=== PATIENT | male | born 1960 | race Caucasian/White ===

== ENCOUNTER → 2018-01-30 | Outpatient (CLI) | payer BC ==
[2018-01-31 13:39] LABS: Banana IgE Class CLASS 0; Beef IgE <0.35 kU/L (<0.35); Beef IgE Class CLASS 0; Chicken IgE Class CLASS 0; Chocolate IgE Class CLASS 0; Kiwi IgE <0.35 kU/L (<0.35); Pork IgE Class CLASS 0; Yeast Bakers/Brew IgE <0.35 kU/L (<0.35)
[2018-01-31 13:40] LABS: Avocado Class CLASS 0; Cow's Milk IgE Class CLASS 0; Egg White IgE <0.35 kU/L (<0.35); Latex IgE Class CLASS 0; Peanut IgE <0.35 kU/L (<0.35); Potato IgE <0.35 kU/L (<0.35); Potato IgE Class CLASS 0; Soybean IgE <0.35 kU/L (<0.35)
[2018-01-31 13:41] LABS: Coffee IgE <0.35 kU/L (<0.35); Coffee IgE Class CLASS 0; Tea IgE <0.35 kU/L (<0.35)
[2018-02-01 13:19] LABS: Hazelnut IgG 6.9 mcg/mL (< 2.0)
== END | disposition home or self-care (01) ==
LOC: LABWHC1 14:03
PROVIDERS: ATTEND Otolaryngology
DX: L50.0 Allergic urticaria (principal)
CPT/HCPCS: 36415; 86001; 86003

== ENCOUNTER 2019-06-03 16:42 | Emergency (ER) | payer BC ==
[2019-06-03] MEDS ORDERED: SODIUM CHLORIDE 0.9% 1,000 ML IV STA (16:44)
[2019-06-03] MEDS ORDERED: FAMOTIDINE 20 MG/2 ML VIAL IV STA (16:44)
[2019-06-03] MEDS ORDERED: ALBUTEROL NEBULIZED 2.5 MG/3 ML INHALATION STA (16:44)
[2019-06-03 16:54] VITALS: BP 161/121; RESP 18; TEMP 98.1
[2019-06-03 17:11] VITALS: PULSE 99
--- NOTE | 2019-06-03 17:51 | ED ---
Allergic Reaction HPI - General Chief complaint: Allergic Reaction Stated complaint: allergic reaction Time Seen by Provider: 06/03/19 16:44 Source: patient, EMS, RN notes reviewed, old records reviewed Mode of arrival: EMS Limitations: no limitations - History of Present Illness Initial Comments: This is a 51-year-old male the ER for evaluation presents today for evaluation Symptomatic symptoms of ALLERGIC reaction. Patient has no pain. No difficulty breathing. Unknown ALLERGIC contacts. States his symptoms happen to him about once a year. Patient was given EpiPen steroids and Benadryl at primary care. Patient resents today per EMS for further evaluation management MD Complaint: allergic reaction, facial swelling (Neck) -: hour(s) Exposure: unknown Symptoms: hoarseness Treatment Prior to Arrival: benadryl, epinephrine, steroids Previous Allergy History: none - Related Data Home Medications Medication Instructions Recorded Confirmed Famotidine [Pepcid] 20 mg PO DAILY 06/03/19 06/03/19 Fexofenadine HCl [Amy Allergy] 180 mg PO DAILY 06/03/19 06/03/19 Allergies Allergy/AdvReac Type Severity Reaction Status Date / Time amoxicillin Allergy Nausea & Verified 06/03/19 17:29 Vomiting & Diarrhea shrimp Allergy Unknown Verified 06/03/19 17:29 Review of Systems ROS Statement: Those systems with pertinent positive or pertinent negative responses have been documented in the HPI. ROS Other: All systems not noted in ROS Statement are negative. Past Medical History Past Medical History: No Reported History History of Any Multi-Drug Resistant Organisms: None Reported Additional Past Surgical History / Comment(s): wrist surgery Past Psychological History: No Psychological Hx Reported Smoking Status: Never smoker Past Alcohol Use History: Daily Past Drug Use History: None Reported General Exam - General Exam Comments Initial Comments: No stridor no wheezing Limitations: no limitations General appearance: alert, in no apparent distress Head exam: Present: atraumatic, normocephalic, normal inspection Eye exam: Present: normal appearance, PERRL, EOMI. Absent: scleral icterus, conjunctival injection, periorbital swelling ENT exam: Present: normal exam, mucous membranes moist Neck exam: Present: normal inspection. Absent: tenderness, meningismus, lymphadenopathy Respiratory exam: Present: normal lung sounds bilaterally. Absent: respiratory distress, wheezes, rales, rhonchi, stridor Cardiovascular Exam: Present: regular rate, normal rhythm, normal heart sounds. Absent: systolic murmur, diastolic murmur, rubs, gallop, clicks GI/Abdominal exam: Present: soft, normal bowel sounds. Absent: distended, tenderness, guarding, rebound, rigid Extremities exam: Present: normal inspection, full ROM, normal capillary refill. Absent: tenderness, pedal edema, joint swelling, calf tenderness Back exam: Present: normal inspection Neurological exam: Present: alert, oriented X3, CN II-XII intact Psychiatric exam: Present: normal affect, normal mood Skin exam: Present: warm, dry, intact, normal color. Absent: rash Course Vital Signs 06/03/19 06/03/19 06/03/19 16:44 16:54 16:59 Temperature 98.1 F Pulse Rate 103 H 109 H Respiratory 18 18 Rate Blood Pressure 161/121 O2 Sat by Pulse 97 Oximetry 06/03/19 17:10 Temperature Pulse Rate 99 Respiratory Rate Blood Pressure O2 Sat by Pulse Oximetry - Reevaluation(s) Reevaluation #1: 06/03/19 17:49 Medical record reviewed Reevaluation #2: 06/03/19 17:49 A she monitored with increased improvement in symptoms Medical Decision Making - Medical Decision Making 59 male the ER for evaluation of ALLERGIC reaction feels like his neck and swelling. No significant findings on exam no stridor no swelling of tongue or lips. Patient feeling better and can be discharged home - Radiology Data Radiology results: report reviewed (Chest x-ray and x-ray soft tissue neck negative for acute disease), image reviewed Disposition Clinical Impression: Allergic reaction Disposition: HOME SELF-CARE Condition: Good Instructions (If sedation given, give patient instructions): Anaphylaxis (ED) Is patient prescribed a controlled substance at d/c from ED?: No Referrals: Mao Robertson DO [Primary Care Provider] - 1-2 days
== END 2019-06-03 18:23 | disposition home or self-care (01) ==
LOC: EC 16:42
DX: T78.40XA Allergy, unspecified, initial encounter (principal); R22.0 Localized swelling, mass and lump, head; Z98.890 Other specified postprocedural states; Z79.899 Other long term (current) drug therapy; Z88.0 Allergy status to penicillin; Z91.013 Allergy to seafood
CPT/HCPCS: 94640; 96361; 96374; 99284

== ENCOUNTER 2019-07-14 14:50 | Emergency (ER) | payer BC ==
[2019-07-14 15:16] VITALS: RESP 18
[2019-07-14] MEDS ORDERED: FAMOTIDINE 20 MG/2 ML VIAL IV STA (15:47)
[2019-07-14] MEDS ORDERED: methylPREDNISolone SOD SUCCI 125 MG/2 ML VIAL IV STA (15:47)
[2019-07-14] MEDS ORDERED: diphenhydrAMINE 50 MG/ML 1 ML VIAL IVP STA (15:47)
--- NOTE | 2019-07-14 15:50 | ED ---
General Adult HPI - General Chief complaint: Allergic Reaction Stated complaint: SANTIAGO,feels like throat is closing Time Seen by Provider: 07/14/19 15:25 Source: patient, family, RN notes reviewed Mode of arrival: ambulatory Limitations: no limitations - History of Present Illness Initial comments: Patient is a pleasant 59-year-old male presenting to emergency Department with complaints of throat irritation. Patient states symptoms started this morning. Patient did take an oral prednisone, 50 mg less than 2 hours ago. Patient took his regular Amy as well. Patient does have history of chronic hives occurring over the past couple of years. Patient does see ALLERGY doctor at [facility] and they believe symptoms may be autoimmune. Patient did have one episode previously of throat swelling however that was much more severe than this. Patient states he does feel a bit short of breath because of swelling in the throat and feels like he is gagging. Patient does not feel like there is breathing problems inside of his lungs. - Related Data Home Medications Medication Instructions Recorded Confirmed Famotidine [Pepcid] 20 mg PO DAILY 06/03/19 06/03/19 Fexofenadine HCl [Amy Allergy] 180 mg PO DAILY 06/03/19 06/03/19 Previous Rx's Medication Instructions Recorded Famotidine [Pepcid] 20 mg PO BID #28 tablet 06/03/19 diphenhydrAMINE [Benadryl] 50 mg PO QID PRN #20 capsule 06/03/19 predniSONE 50 mg PO DAILY #5 tab 06/03/19 Allergies Allergy/AdvReac Type Severity Reaction Status Date / Time amoxicillin Allergy Nausea & Verified 06/03/19 17:29 Vomiting & Diarrhea shrimp Allergy Unknown Verified 06/03/19 17:29 Review of Systems ROS Statement: Those systems with pertinent positive or pertinent negative responses have been documented in the HPI. ROS Other: All systems not noted in ROS Statement are negative. Constitutional: Denies: fever Eyes: Denies: eye pain ENT: Denies: ear pain Respiratory: Reports: as per HPI Cardiovascular: Denies: chest pain Endocrine: Denies: fatigue Gastrointestinal: Denies: abdominal pain Genitourinary: Denies: dysuria Musculoskeletal: Denies: back pain Skin: Denies: rash Neurological: Denies: weakness Past Medical History Past Medical History: No Reported History History of Any Multi-Drug Resistant Organisms: None Reported Additional Past Surgical History / Comment(s): wrist surgery Past Psychological History: No Psychological Hx Reported Smoking Status: Never smoker Past Alcohol Use History: Daily Past Drug Use History: None Reported General Exam Limitations: no limitations General appearance: alert, in no apparent distress Head exam: Present: atraumatic Eye exam: Present: normal appearance, PERRL ENT exam: Present: other (Mild uvula edema) Neck exam: Present: normal inspection Respiratory exam: Present: normal lung sounds bilaterally. Absent: respiratory distress, wheezes Cardiovascular Exam: Present: regular rate, normal rhythm GI/Abdominal exam: Present: soft. Absent: tenderness Extremities exam: Present: normal inspection Neurological exam: Present: alert Psychiatric exam: Present: normal affect, normal mood Skin exam: Present: normal color. Absent: rash Course Vital Signs 07/14/19 15:15 Temperature 98.0 F Pulse Rate 100 Respiratory 18 Rate Blood Pressure 168/111 O2 Sat by Pulse 98 Oximetry Medical Decision Making - Medical Decision Making Patient reevaluated and feels significant better. Uvula exam has normalized. Patient updated on need for follow-up. Patient has prednisone at home and is advised to take this for the next 4 days. Disposition Clinical Impression: Allergic reaction Disposition: HOME SELF-CARE Condition: Stable Instructions (If sedation given, give patient instructions): Angioedema (ED) Additional Instructions: Please follow-up with primary care physician and your assembler lay ups this week. Return for throat swelling, difficulty breathing, swelling of the face or tongue, worsening symptoms or other concerns. Use your prednisone 50 mg prescription once daily for the next 4 days. Is patient prescribed a controlled substance at d/c from ED?: No Referrals: Mao Robertson DO [Primary Care Provider] - 1-2 days Time of Disposition: 16:44
[2019-07-14 17:05] VITALS: BP 118/87; PULSE 87; TEMP 97
== END 2019-07-14 17:04 | disposition home or self-care (01) ==
LOC: EC 14:50
DX: T78.40XA Allergy, unspecified, initial encounter (principal); L50.8 Other urticaria; Z88.0 Allergy status to penicillin; Z91.013 Allergy to seafood; Z79.899 Other long term (current) drug therapy
CPT/HCPCS: 99284; 96374; 96375 ×2; J1200; J2930

== ENCOUNTER → 2019-10-13 | Outpatient (CLI) | payer BC | END | disposition home or self-care (01) | LOC: LABWHC1 10:30 | PROVIDERS: ATTEND Internal Medicine Critical Care Medicine | DX: L50.9 Urticaria, unspecified (principal) | CPT/HCPCS: 36415; 82785; 85008 ==

== ENCOUNTER → 2020-12-17 | Outpatient (CLI) | payer BC ==
--- NOTE | 2020-12-17 13:04 | MR ---
EXAMINATION TYPE: MR shoulder LT wo con DATE OF EXAM: 12/17/2020 12:38 PM COMPARISON: NONE HISTORY: Left shoulder pain into bicep TECHNIQUE: Multiplanar multispin echo imaging of the left shoulder was performed. FINDINGS: Rotator cuff : There is partial tear of the supraspinatus tendon at the critical zone. There is super imposed chronic tendinopathy of the supraspinatus tendon. Undersurface partial tear infraspinatus ten don. Subscapularis tendon is intact. Bursa: No bursal effusion or thickening is seen. Musculature: There is no muscular tear, contusion, or atrophy. Acromioclavicular joint : Moderate AC joint arthropathy. Lateral downsloping of the acromion resultin g. Osseous structures : Cystic degenerative change humeral head bony glenoid. Long biceps tendon : The b iceps tendon is normally situated within the bicipital groove. No complete or partial biceps tendon t ear is present. Fluid is seen within the biceps tendon sheath. Intra-articular biceps tendon tenosyno vitis. Glenohumeral Joint fluid : Moderate joint effusion seen. Cartilage and Bone : No focal hyaline cartilage defects are noted. No Hill-Sachs, reverse Hill-Sachs, or bony Bankart lesions are seen. Labrum : Anterior superior and inferior labral tear is suggested. OTHER FINDINGS : none IMPRESSION: 1. There is partial tear of the supraspinatus tendon at the critical zone. There is superimposed folder taper operator yulissa tendinopathy of the supraspinatus tendon. Undersurface partial tear infraspinatus tendon. 2. Chronic glenoid tears noted.
== END | disposition home or self-care (01) ==
LOC: RADMRIMAIN 10:54
PROVIDERS: ATTEND Family Medicine
DX: M75.112 Incomplete rotator cuff tear or rupture of left shoulder, not specified as traumatic (principal); M67.814 Other specified disorders of tendon, left shoulder

== ENCOUNTER → 2021-02-15 | Outpatient (CLI) | payer BC ==
[2021-02-15 13:20] LABS: HCT 40.7 % (39.0-53.0); HGB 14.2 gm/dL (13.0-17.5); MCHC 34.8 g/dL (31.0-37.0); MCV 89.1 fL (80.0-100.0); Mean Platelet Volume 6.9; Platelet Count 258 k/uL (150-450); RBC 4.56 m/uL (4.30-5.90); RDW 12.5 % (11.5-15.5); WBC 5.9 k/uL (3.8-10.6)
[2021-02-15 13:21] LABS: Appearance,Urine Clear (Clear); Bilirubin,Urine Negative (Negative); Blood,Urine Negative (Negative); Color,Urine Yellow; Glucose,Urine (UA) Negative (Negative); Ketones,Urine Negative (Negative); Leukocyte Esterase,Urine Negative (Negative); Nitrite,Urine Negative (Negative); Protein,Urine Negative (Negative); Specific Gravity,Urine 1.011 (1.001-1.035); Urobilinogen,Urine <2.0 mg/dL (<2.0)
[2021-02-15 13:36] LABS: Albumin 4.3 g/dL (3.5-5.0); Calcium 9.3 mg/dL (8.4-10.2); Partial Thromboplastin Time 22.9 sec (22.0-30.0); Potassium 5.1 mmol/L (3.5-5.1); Prothrombin Time 10.4 sec (9.0-12.0); Total Bilirubin 0.5 mg/dL (0.2-1.3); Total Protein 6.7 g/dL (6.3-8.2)
== END | disposition home or self-care (01) ==
LOC: LABPAT 10:52
PROVIDERS: ATTEND Orthopaedic Surgery
DX: Z01.810 Encounter for preprocedural cardiovascular examination (principal); Z01.812 Encounter for preprocedural laboratory examination
CPT/HCPCS: 36415; 80053; 81003; 85027; 85610; 85730; 87070; 93005

== ENCOUNTER 2021-03-15 11:03 | Day surgery (SDC) | payer BC ==
[2021-03-10 15:06] VITALS: BMI 29.0
[~2021-03-15 11:03] MED LIST: ACETAMINOPHEN TAB 500 MG TAB PO PRN; DEXAMETHASONE SOD PHOSPHATE 4 MG/ML 1 ML VIAL IV ONE; GABAPENTIN 300 MG CAP PO PRN; HYDROmorphone 0.5 MG/0.5 ML SYRINGE IVP PRN; LACTATED RINGERS 1,000 ML IV SCH; MELOXICAM 7.5 MG TAB PO PRN; MIDAZOLAM 2 MG/2 ML VIAL IV PRN; ONDANSETRON 4 MG/2 ML VIAL IVP ONE; ROPIVACAINE/EPI/CLONIDINE/KET 50 ML SYRINGE MISCELLANE PRN; SCOPOLAMINE 1.5MG/72HR PATCH TRANSDERM ONE; TRANEXAMIC ACID 1,000 MG in SODIUM CHLORIDE 0.9% 100 ML IVPB PRN
[2021-03-15 12:48] LABS: Albumin 4.1 g/dL (3.5-5.0); Calcium 9.6 mg/dL (8.4-10.2); Potassium 4.7 mmol/L (3.5-5.1); Total Bilirubin 0.6 mg/dL (0.2-1.3); Total Protein 6.5 g/dL (6.3-8.2)
[2021-03-15] MEDS ORDERED: MIDAZOLAM 2 MG/2 ML VIAL IVP ONE (13:15)
--- NOTE | 2021-03-15 14:24 | P.ANPRN ---
Procedure Note - Anesthesia - Nerve Block Performed Left Interscalene Time Out Performed: Yes (13:15) Date of Procedure: 03/15/21 Procedure Start Time: :15 Procedure Stop Time: Location of Patient: PreOp Indication: Acute Post-Operative Pain, Requested by Surgeon (Dr Mao Denton) Sedation Type: Sedate with meaningful contact maintained Preparation: Sterile Prep Position: Supine Catheter: None Needle Types: Pajunk Needle Gauge: Other (see comment) (22g) Ultrasound used to visualize needle placement: Yes Ultrasound used to observe medication spread: Yes Injectate: 0.5% Ropivacaine (see comment for volume) (20cc + Decadron 4mg) Blood Aspirated: No Pain Paresthesia on Injection Noted: No Resistance on Injection: Normal Image Stored and Saved: Yes Events: Uneventful and Well Tolerated
[2021-03-15] MEDS ORDERED: HYDROmorphone 1 MG/ML 1 ML SYRINGE IVP PRN (14:50)
[2021-03-15] MEDS ORDERED: HYDROmorphone 0.2 MG/1 ML SYRINGE IVP PRN (14:50)
[2021-03-15] MEDS ORDERED: HYDROmorphone 0.5 MG/0.5 ML SYRINGE IVP PRN (14:50)
[2021-03-15] MEDS ORDERED: HYDROcodone/APAP 7.5-325MG 1 EACH TAB PO PRN ×2 (14:51)
[2021-03-15] MEDS ORDERED: TRANEXAMIC ACID 1,000 MG/10 ML VIAL ONE (15:14)
[2021-03-15] MEDS ORDERED: fentaNYL (PF) 50 MCG/ML 2 ML AMP ONE (15:14)
[2021-03-15] MEDS ORDERED: SUCCINYLCHOLINE CHLORIDE 100 MG/5 ML SYR IV ONE (15:14)
[2021-03-15] MEDS ORDERED: PHENYLEPHRINE-0.9% NACL SYG 1,000 MCG/10 ML SYRINGE ONE (15:14)
[2021-03-15] MEDS ORDERED: LIDOCAINE 1% INJ 10MG/ML (20 ML MDV) ONE (15:14)
[2021-03-15] MEDS ORDERED: ROPIVACAINE 5 MG/ML 30 ML VIAL ONE (15:14)
[2021-03-15] MEDS ORDERED: PROPOFOL 10 MG/ML 20 ML VIAL IV ONE (15:14)
[2021-03-15] MEDS ORDERED: MIDAZOLAM 2 MG/2 ML VIAL ONE (15:14)
[2021-03-15] MEDS ORDERED: DEXAMETHASONE SOD PHOSPHATE 4 MG/ML 1 ML VIAL ONE (15:14)
[2021-03-15] MEDS ORDERED: SODIUM CHLORIDE 0.9% 100 ML BAG ONE (15:14)
[2021-03-15] MEDS ORDERED: GLYCOPYRROLATE 0.2 MG/ML 2 ML VIAL ONE (15:14)
[2021-03-15] MEDS ORDERED: ePHEDrine SULFATE/0.9% NACL/PF 50 MG/5 ML SYRINGE IV ONE (15:14)
[2021-03-15] MEDS ORDERED: LACTATED RINGERS 1,000 ML IV ONE (16:42)
[2021-03-15] MEDS ORDERED: ceFAZolin 1,000 MG in SODIUM CHLORIDE 0.9% 1,000 ML IRRIGATION ONE (16:45)
--- NOTE | 2021-03-15 17:03 | P.OP ---
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 Biomet comprehensive reverse shoulder system, prolong highly cross-linked polyethylene bearing, 36 mm, +3 mm Biomet comprehensive reverse shoulder system, mini humeral tray, 40 mm, standard Biomet comprehensive reverse shoulder, Glenosphere mini baseplate, 25 mm Biomet comprehensive reverse shoulder, central screw, 6.5 mm x 25 mm Biomet comprehensive reverse shoulder, fixed locking screw, 4.75 x 20 mm, 20 mm, 20 mm, 25 mm. Biomet comprehensive reverse shoulder glenosphere, 36 mm, standard All components were press-fit. Articulation is metal on polyethylene. Anesthesia: GETA Surgeon: Mao Denotn Boiler House Inspector #1: Giovanna Nettles Estimated Blood Loss (ml): 100 Pathology: other (Humeral head) Condition: stable Disposition: PACU Indications for Procedure: This is a patient that presented to my office with severe pain in the shoulder. X-rays demonstrated severe osteoarthritis of the glenohumeral joint of her shoulder. After failure of conservative treatment, we discussed the surgical and nonsurgical treatment options at length. The patient wishes to proceed with a reverse total shoulder arthroplasty. Patient is aware of the complications of the procedure which include but are not limited to infection, hardware failure, persistent pain, dislocation, and nerve injury. Informed consent was obtained. Operative Findings: The operative findings are consistent with severe osteoarthritis of the left shoulder with chronic rotator cuff tear Description of Procedure: The patient was seen in the preoperative area, consent was reviewed, and operative site was marked with a skin marker. Patient was then brought to the operating room and given preoperative antibiotics intravenously. Patient was also given 1 g of Tranexamic acid intravenously. A general anesthetic was administered by the anesthesia department. A Blackman catheter was placed by the nursing staff. The patient was then placed in a beachchair position with the bony prominences well-padded and the head secured. The shoulder was then prep ped and draped in the usual sterile fashion. A universal timeout was then performed, which confirmed the patient's name, surgical site, ALLERGIES, and consent. A standard deltopectoral approach was performed. The skin and subcutaneous tissue was sharply dissected down to the deltoid fascia. The cephalic vein was then identified and retracted medially. The deltopectoral interval was then utilized to expose the subscapularis tendon. A retractor was then placed under the coracobrachialis tendon retracted medially, and the deltoid. The axillary nerve is palpated and protected throughout the procedure. The subscapularis tendon was then released and retracted medially. The humeral head was then exposed easily. The rotator cuff tendon was found to be completely torn and retracted. After the humeral head was exposed, osteophytes were removed with a Ronguer. Next the humeral stem was prepared. A starter reamer was then placed through the humeral head along the axis of the humeral shaft just lateral to the articular surface and just medial to the rotator cuff attachment. Sequential reaming was performed to the appropriate size reamer was inserted to the #between the 3 and 4 on the reamer. Next the intramedullary resection guide was placed on the reamer shaft. It was placed to the appropriate resection depth and angle of 30 of retroversion. Resection guide block was then secured with Steinmann pins. The proximal humerus was then resected. The block was then removed and the humerus was then broached sequentially to the same size as the reamer. After the broaches fully seated, the broach handle was removed and a broach cover was placed protect the humerus while the glenoid was prepared. Next attention was directed to the glenoid. The appropriate retractors were placed around the glenoid and any remaining soft tissues was removed from around the glenoid. After the glenoid was adequately exposed, the threaded glenoid guide was placed onto the glenoid and a 3.2 mm Steinmann pin was inserted in the glenoid at the desired angle and position, ensuring the pin engaged medial cortical wall. Next, the cannulated baseplate reamer was placed over the top of the Steinmann pin. The glenoid was then reamed to the appropriate depth. The glenoid reamer was then removed, leaving the Steinmann pin. The glenoid Jonah plate implant was placed on the end of the cannulated baseplate impactor. The baseplate was then impacted fully into the glenoid. Next the 6.5 mm central screw was then placed which afforded excellent fixation. The 4 peripheral locking screws were then drilled measured and placed. Next the appropriate glenosphere was opened and impacted into the glenoid baseplate. Attention was then redirected to the humerus. Next a trial humeral tray was placed in the shoulder was reduced. Shoulder was taken through a full range of motion and found to be stable. The shoulder was then gently dislocated, and the trial humerus and humeral tray were removed. The final humeral stem was impacted in the final humeral tray was impacted as well. Shoulder was then relocated. Again the shoulder was taken through a range of motion and found to have no instability. Shoulder was then irrigated with pulsatile lavage. The shoulder was then irrigated with Irrisept solution. A second dose of 1 g of Tranexamic acid was given. The subscapularis was then repaired with #1 Vicryl. The deltopectoral interval was then closed with #1 Vicryl as well. The subcutaneous tissues were closed with 2-0 Vicryl then Dermabond was placed on the skin. A sterile dressing was then applied, the patient was transported to the recovery room in an arm sling in stable condition. The assistant to the director JULIETA Cross was required due the complexity of surgery and the need for a skilled director surgical.
[2021-03-15 17:43] VITALS: TEMP 97.8
[2021-03-15 17:48] VITALS: RESP 16
[2021-03-15 20:37] VITALS: BP 119/80; PULSE 78
--- NOTE | 2021-03-16 09:59 | XR ---
EXAMINATION TYPE: XR shoulder limited LT DATE OF EXAM: 03/15/2021 COMPARISON: MRI shoulder 12/17/2020 HISTORY: Postop TECHNIQUE: Frontal view of the left shoulder are obtained. FINDINGS: There is a left shoulder reverse total arthroplasty with anatomic alignment and no evidence of hardware fracture. Soft tissue gas as expected postoperatively. No unexpected radiopaque foreign body. No acute displaced osseous abnormality. Atelectasis at the left lung base. IMPRESSION: Status post left shoulder reverse total arthroplasty with anatomic alignment.
== END 2021-03-15 20:56 | disposition home or self-care (01) ==
LOC: OR 11:03 → EDSTATUS 13:20 → OR 20:56
PROVIDERS: ATTEND Orthopaedic Surgery
DX: M19.012 Primary osteoarthritis, left shoulder (principal); M75.102 Unspecified rotator cuff tear or rupture of left shoulder, not specified as traumatic; M25.712 Osteophyte, left shoulder; I10 Essential (primary) hypertension; R21 Rash and other nonspecific skin eruption; K30 Functional dyspepsia; Z82.49 Family history of ischemic heart disease and other diseases of the circulatory system; G47.33 Obstructive sleep apnea (adult) (pediatric); K21.9 Gastro-esophageal reflux disease without esophagitis; Z79.52 Long term (current) use of systemic steroids; Z79.899 Other long term (current) drug therapy; Z88.1 Allergy status to other antibiotic agents; Z88.0 Allergy status to penicillin; Z91.013 Allergy to seafood
CPT/HCPCS: 64415; 76942; 80053; 73020; 23472; C1776; J2250; J1100; J0690 ×2; J2405; J2001; J3010; J2795; J2370; J0330; J2704; 88300

== ENCOUNTER → 2022-06-09 | Outpatient (CLI) | payer OTHER ==
--- NOTE | 2022-06-10 03:40 | MR ---
EXAMINATION TYPE: MR brain wo/w con DATE OF EXAM: 06/09/2022 COMPARISON: None HISTORY: Mild cognitive impairment. CONTRAST: Standard multiplanar, multisequence MRI departmental protocol images were obtained without contrast a nd with 8 mL intravenous Gadavist gadolinium contrast. Ventricles of normal size. There is no mass effect or midline shift. No sign of intracranial hemorrha ge. Diffusion images show no evidence of an acute infarct. There are a few scattered foci of increase d signal in the garcía-white matter junction both cerebral hemispheres that measure up to 5 mm. Total n umber is approximately 15 and this could be microvascular ischemia. The brainstem is intact. Corpus c allosum is intact. Sella turcica appears normal. No evidence of orbital mass. No evidence of posterio r fossa mass. Contrast images show no pathologic enhancement. There is normal enhancement of the venous sinuses. IMPRESSION: Scattered white matter foci that could relate to microvascular ischemia. No evidence of cortical infa rct. No evidence of any significant atrophy.
== END | disposition home or self-care (01) ==
LOC: RADMRIMAIN 14:25
PROVIDERS: ATTEND Family Medicine
DX: G31.84 Mild cognitive impairment of uncertain or unknown etiology (principal); R45.4 Irritability and anger; I10 Essential (primary) hypertension
CPT/HCPCS: 70553; A9585

== ENCOUNTER → 2024-08-15 | Outpatient (CLI) | payer MEDICARE, OTHER ==
--- NOTE | 2024-08-16 11:22 | MR ---
EXAMINATION TYPE: MR brain wo/w con DATE OF EXAM: 08/15/2024 COMPARISON: 06/09/2022 HISTORY: Past head injuries, memory problems. CONTRAST: Performed utilizing 7.5 mL intravenous Gadavist gadolinium contrast. TECHNIQUE: Multiplanar, multiecho imaging on a 3.0 Felisha magnet is performed through the brain. Stud y is performed within 24 hours of arrival to the hospital. The craniovertebral junction is normal. The pituitary is normal. Diffusion-weighted imaging is performed. No abnormal hyperintensity is present to suggest an acute i ntracranial infarct or acute ischemic change. There are several scattered subcortical white matter changes present greater on the left. These are n onspecific but can be related to chronic white matter ischemic type changes. Migraine headaches or va sculitis are within the differential. Multiple sclerosis and Lyme disease and not excluded. No abnorm al enhancement is evident in these locations or elsewhere within the brain Ventricles and sulci are appropriate for the patient age. IMPRESSION: 1. No acute intracranial process Pre- and Postcontrast MRI. 2. Scattered punctate subcortical white matter changes likely on the basis of chronic white matter is chemic change [facility], Workstation: [facility], 08/16/2024 11:20 AM
== END | disposition home or self-care (01) ==
LOC: RADMRIMAIN 16:55
PROVIDERS: ATTEND Family Medicine
DX: R45.4 Irritability and anger (principal); F41.3 Other mixed anxiety disorders; F32.0 Major depressive disorder, single episode, mild; F10.20 Alcohol dependence, uncomplicated; I67.82 Cerebral ischemia; G93.89 Other specified disorders of brain; I10 Essential (primary) hypertension
CPT/HCPCS: 70553